=== PATIENT | male | born 1940 | race Caucasian/White ===

== ENCOUNTER 2022-01-03 21:57 | Emergency (ER) | payer MEDICARE ==
[~2022-01-03] VITALS: Ht 182.8 cm; Wt 113.4 kg
[~2022-01-03 21:57] MED LIST: CRESTOR PO; GLYBURIDE; LISINOPRIL5 MG PO; MIRAPEX
[2022-01-03 22:35] LABS: BASO % 0.3 % (0.0-1.0); EOS % 0.5 % (1.0-4.0); HEMATOCRIT 41.6 % (42.0-52.0); LYMPH # 0.6 10*3/uL (1.3-4.4); LYMPH % 9.9 % (27.0-41.0); MEAN CELL VOLUME 95.6 fl (80.0-94.0); MEAN CORPUSCULAR HGB 33.8 pg (27.0-31.0); MEAN CORPUSCULAR HGB CONC 35.3 g/dl (33.0-37.0); MEAN PLATELET VOLUME 10.9 fl (9.6-12.3); MONO # 0.5 10*3/uL (0.1-1.0); MONO % 8.4 % (3.0-9.0); NEUT # 4.6 10*3/uL (2.3-7.9); NEUT % 80.7 % (47.0-73.0); PLATELET COUNT AUTOMATED 195 10*3/uL (130-400); RED BLOOD COUNT 4.35 10*6/uL (4.50-5.90); RED CELL DISTRI WIDTH 12.3 % (0-14.5); WHITE BLOOD COUNT 5.7 10*3/uL (4.8-10.8)
[2022-01-03 22:49] LABS: ACT PARTIAL THROMBO TIME 26.4 SECONDS (20.0-32.1)
[2022-01-03 22:51] LABS: ALKALINE PHOSPHATASE 86 U/L (45-117); BUN 25 mg/dl (7-24); CHLORIDE 104 mmol/L (98-107); CREATININE 1.26 mg/dL (0.70-1.30); LIPASE 126 U/L (73-393); POTASSIUM 4.3 mmol/L (3.5-5.1); SGOT/AST 24 IU/L (3-35); SGPT/ALT 48 U/L (12-78); SODIUM 136 mmol/L (136-145); TOTAL PROTEIN 7.2 gm/dL (6.4-8.2)
[2022-01-03 23:59] LABS: BILIRUBIN Negative (Negative); BLOOD Negative (Negative); CLARITY Clear (Clear); COLOR Yellow (Yellow); GLUCOSE 3+ (Negative); KETONE Negative (Negative); LEUKO ESTERASE Negative (Negative); NITRITE Negative (Negative); SPECIFIC GRAVITY >= 1.030 (1.001-1.030); UROBILINOGEN 0.2 E.U./dl (0.0-1.0)
[2022-01-04 00:33] LABS: EPITHELIAL CELLS 0-2; RBC 0-2 rbc/hpf (0-2); WBC 0-2 wbc/hpf (0-5)
== END 2022-01-04 00:38 | disposition home or self-care (01) ==
LOC: ED 21:57
PROVIDERS: Family Medicine
DX: R73.9 Hyperglycemia, unspecified (principal); Z98.890 Other specified postprocedural states; Z79.899 Other long term (current) drug therapy

== ENCOUNTER 2022-09-30 12:36 | Emergency (ER) | payer MEDICARE ==
[2022-09-30 13:22] LABS: BASO % 0.4 % (0.0-1.0); EOS # 0.1 10*3/uL (0.0-0.4); HEMATOCRIT 43.5 % (42.0-52.0); MEAN CELL VOLUME 98.9 fl (80.0-94.0); MEAN CORPUSCULAR HGB 34.5 pg (27.0-31.0); MEAN CORPUSCULAR HGB CONC 34.9 g/dl (33.0-37.0); MONO # 0.9 10*3/uL (0.1-1.0); NEUT # 3.4 10*3/uL (2.3-7.9); NEUT % 63.2 % (47.0-73.0); PLATELET COUNT AUTOMATED 183 10*3/uL (130-400); RED CELL DISTRI WIDTH 12.3 % (0-14.5); WHITE BLOOD COUNT 5.4 10*3/uL (4.8-10.8)
[2022-09-30] MEDS ORDERED: ASPIRIN81 M1 PO (13:24)
[2022-09-30] MEDS ORDERED: TYLENOL325 M2 PO (13:24)
[2022-09-30] MEDS ORDERED: CRANBERRY500 M2 PO (13:25)
[2022-09-30] MEDS ORDERED: AZELASTIN-FLUTI23 GM NAS (13:25)
[2022-09-30] MEDS ORDERED: DONEPEZIL HCL10 MG PO (13:26)
[2022-09-30] MEDS ORDERED: DEPAKOTE ER500 MG PO (13:26)
[2022-09-30] MEDS ORDERED: CYMBALTA30 MG PO (13:27)
[2022-09-30] MEDS ORDERED: WAL-FEX180 MG PO (13:27)
[2022-09-30] MEDS ORDERED: GLYBURIDE5 MG PO (13:30)
[2022-09-30] MEDS ORDERED: HUMALOG100 UNIT/1 SC (13:31)
[2022-09-30] MEDS ORDERED: HYDROCHLOROTHIA25 M1 PO (13:32)
[2022-09-30] MEDS ORDERED: LANTUS SOL100 UNIT/1 SC (13:33)
[2022-09-30 13:34] LABS: ACT PARTIAL THROMBO TIME 28.3 SECONDS (20.0-32.1)
[2022-09-30] MEDS ORDERED: NAMENDA10 MG PO (13:34)
[2022-09-30] MEDS ORDERED: METFORMIN850 MG PO (13:35)
[2022-09-30] MEDS ORDERED: PROTONIX20 MG PO (13:36)
[2022-09-30] MEDS ORDERED: METOPROLOL SUCC50 M1 PO (13:36)
[2022-09-30] MEDS ORDERED: POLYETHYLENE GLY1 G1 MC (13:37)
[2022-09-30] MEDS ORDERED: ROSUVASTATIN CAL5 MG PO (13:38)
[2022-09-30] MEDS ORDERED: MAGNESIUM200 MG PO (13:39)
[2022-09-30] MEDS ORDERED: TAMSULOSIN HCL0.4 MG PO (13:39)
[2022-09-30] MEDS ORDERED: LIDOCAINE1 EACH TD (13:40)
[2022-09-30 13:46] LABS: ALKALINE PHOSPHATASE 56 U/L (46-116); BUN 15 mg/dl (9-23); CHLORIDE 103 mmol/L (98-107); LIPASE 46 U/L (12-53); POTASSIUM 3.9 mmol/L (3.4-5.1); SGPT/ALT 15 U/L (10-49); TOTAL PROTEIN 6.7 gm/dL (6.0-8.0)
[2022-09-30 14:49] LABS: BILIRUBIN Negative (Negative); BLOOD Negative (Negative); CLARITY Clear (Clear); COLOR Yellow (Yellow); GLUCOSE Negative (Negative); KETONE 1+ (Negative); LEUKO ESTERASE Negative (Negative); NITRITE Negative (Negative); PH 5.5 (4.5-8.0); SPECIFIC GRAVITY 1.025 (1.001-1.030)
[2022-09-30 14:56] LABS: BACTERIA 1+; MUCOUS 1+
[2022-09-30] MEDS ORDERED: CIPRO500 MG PO (16:03)
== END 2022-09-30 16:02 | disposition home or self-care (01) ==
LOC: ED 12:36
PROVIDERS: Internal Medicine
DX: N39.0 Urinary tract infection, site not specified (principal); E11.9 Type 2 diabetes mellitus without complications; I10 Essential (primary) hypertension; E78.00 Pure hypercholesterolemia, unspecified; F03.90 Unspecified dementia, unspecified severity, without behavioral disturbance, psychotic disturbance, mood disturbance, and anxiety; Z98.890 Other specified postprocedural states

== ENCOUNTER 2023-01-06 19:18 | Emergency (ER) | payer MEDICARE, MEDICAID ==
[~2023-01-06] VITALS: Wt 95.3 kg
[~2023-01-06 19:18] MED LIST changes: +ASPIRIN81 M1 PO; +AZELASTIN-FLUTI23 GM NAS; +CIPRO500 MG PO; +CRANBERRY500 M2 PO; +CYMBALTA30 MG PO; +DEPAKOTE ER500 MG PO; +DONEPEZIL HCL10 MG PO; +GLYBURIDE5 MG PO; +HUMALOG100 UNIT/1 SC; +HYDROCHLOROTHIA25 M1 PO; +LANTUS SOL100 UNIT/1 SC; +LIDOCAINE1 EACH TD; +MAGNESIUM200 MG PO; +METFORMIN850 MG PO; +METOPROLOL SUCC50 M1 PO; +NAMENDA10 MG PO; +POLYETHYLENE GLY1 G1 MC; +PROTONIX20 MG PO; +ROSUVASTATIN CAL5 MG PO; +TAMSULOSIN HCL0.4 MG PO; +TYLENOL325 M2 PO; +WAL-FEX180 MG PO
[2023-01-06] MEDS ORDERED: TRAMADOL HCL50 MG PO (21:15)
== END 2023-01-06 21:56 ==
LOC: ED 19:18
DX: S43.101A Unspecified dislocation of right acromioclavicular joint, initial encounter (principal); I10 Essential (primary) hypertension; E11.9 Type 2 diabetes mellitus without complications; E78.00 Pure hypercholesterolemia, unspecified; F03.90 Unspecified dementia, unspecified severity, without behavioral disturbance, psychotic disturbance, mood disturbance, and anxiety; Z98.890 Other specified postprocedural states; W19.XXXA Unspecified fall, initial encounter; Y93.89 Activity, other specified; Y92.89 Other specified places as the place of occurrence of the external cause; Y99.8 Other external cause status